=== PATIENT | male | born 1970 | race Hispanic/Latino ===

== ENCOUNTER 2018-11-13 00:28 | Inpatient (IN) | payer SELFPAY ==
[2018-11-13] MEDS ORDERED: Adacel (T-DAP) 0.5 ML SYRINGE ONE (00:30)
[2018-11-13] MEDS ORDERED: CEFAZOLIN 2 GM/50 ML BAG ONE (00:30)
[2018-11-13] MEDS ORDERED: Ketorolac Tromethamine 30 MG/ML VIAL ONE (00:32)
[2018-11-13] MEDS ORDERED: Fentanyl 100 MCG/2 ML VIAL ONE (00:33)
[2018-11-13 00:47] LABS: #Basophils 0.1 thou/uL (0.0-0.2); #Eosinphils 0.1 thou/uL (0.0-0.7); #Lymphocytes 3.6 thou/uL (1.20-3.40); #Monocytes 0.5 thou/uL (0.11-0.59); #Neutrophils 5.1 thou/uL (1.40-6.50); %Basophils 1.2 % (0.0-1.0); %Eosinophils 0.8 % (0.0-10.0); %Lymphocytes 38.4 % (21.0-51.0); %Monocytes 5.3 % (0.0-10.0); %Neutrophils 54.4 % (42.0-75.0); Mean Corpuscular HGB CONC 35.9 g/dL (32.0-36.0); Mean Corpuscular Hemoglobin 32.1 pg (27.0-31.0); Mean Corpuscular Volume 89.4 fL (78.0-98.0); Platelet Count 286 thou/uL (130-400); RBC Distribution Width 12.6 % (11.5-14.5); White Blood Cell (WBC) Count 9.3 thou/uL (4.8-10.8)
[2018-11-13 00:50] LABS: INR-International Normal Ratio 0.9; Prothrombin Time 12.7 SEC (12.0-14.7)
[2018-11-13] MEDS ORDERED: Dextrose 5% in Water 1,000 ML IV PRN (00:54)
[2018-11-13] MEDS ORDERED: Dextrose 50% Abboject 50 ML SYRINGE SLOW IVP PRN (00:54)
[2018-11-13 00:57] LABS: ALT (SGPT) 85 U/L (8-55); AST (SGOT) 58 U/L (5-34); Albumin 4.5 g/dL (3.5-5.0); Alkaline Phosphatase 76 U/L (40-150); Anion Gap 20 mmol/L (10-20); BUN (Urea Nitrogen) 10 mg/dL (8.9-20.6); Bilirubin, Total 0.7 mg/dL (0.2-1.2); Calc. Creatinine Clearance 0 mL/min (70-130); Calcium 9.1 mg/dL (7.8-10.44); Carbon Dioxide 20 mmol/L (22-29); Chloride 102 mmol/L (98-107); Estimated GFR-MDRD 53; Globulin 4.1 g/dL (2.4-3.5); Glucose 123 mg/dL (70-105); Potassium 3.2 mmol/L (3.5-5.1); Protein, Total 8.6 g/dL (6.0-8.3); Sodium 139 mmol/L (136-145)
[2018-11-13] MEDS ORDERED: Rib Fracture Protocol PO SCH (01:00)
[2018-11-13 01:07] LABS: Acetaminophen Less than 6.0 mcg/mL (10.0-30.0); Alcohol 118 mg/dL (Less than 10); Salicylate Less than 8.0 mg/dL (15.0-30.0)
[2018-11-13] MEDS ORDERED: hydrALAZINE 20 MG/ML VIAL ONE (01:30)
[2018-11-13] MEDS ORDERED: Sodium Chloride 0.9% 1,000 ML IV SCH (01:45)
[2018-11-13] MEDS ORDERED: traMADol HCl 50 MG TAB ONE (02:12)
[2018-11-13] MEDS: Cyclobenzaprine 10 MG TAB PO PRN (03:13)
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
[2018-11-13 03:38] VITALS: BMI 28.5
[2018-11-13] MEDS: Acetaminophen 500 MG TAB PO SCH ×4 (05:21→23:30)
[2018-11-13] MEDS: Ibuprofen 800 MG TAB PO SCH ×4 (05:21→23:30)
[2018-11-13] MEDS: traMADol HCl 50 MG TAB PO SCH ×4 (05:21→23:29)
[2018-11-13] MEDS ORDERED: CEFAZOLIN 2 GM in Sodium Chloride 0.9% 100 ML IVPB SCH (06:00)
[2018-11-13] MEDS: CEFAZOLIN 2 GM/50 ML-DEXTROSE 2 GM in Premix Bag 1 BAG IVPB SCH ×3 (07:57→23:29)
[2018-11-13] MEDS: Gabapentin 300 MG CAP PO SCH ×3 (07:58→20:03)
[2018-11-13] MEDS: Enoxaparin Sodium 40 MG/0.4 ML SYRINGE SC SCH (07:58)
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
--- NOTE | 2018-11-13 11:52 | RAD ---
LEFT SHOULDER 2 VIEWS: Date: 11/13/18 HISTORY: Fracture. COMPARISON: CT same day. FINDINGS: There is a comminuted fracture of the scapula with radiopaque debris. Scapular fracture is at the acr omion. The coracoid process and the body of the scapula is intact. There is a radiopaque object humeral head, although is not well seen on the radiograph. IMPRESSION: Comminuted fracture of the acromion process of the scapula with subcutaneous gas and radiopaque debri s. The body of the scapula is intact. POS: [facility]
[2018-11-13] MEDS ORDERED: Amlodipine 10 MG TAB PO SCH (12:15)
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
[2018-11-13] MEDS ORDERED: Iopamidol 370 76% 100 ML VIAL ONE (17:11)
[2018-11-14] MEDS: traMADol HCl 50 MG TAB PO SCH (05:14)
[2018-11-14] MEDS: Acetaminophen 500 MG TAB PO SCH (05:15)
[2018-11-14] MEDS: Ibuprofen 800 MG TAB PO SCH (05:17)
[2018-11-14 06:52] LABS: #Basophils 0.1 thou/uL (0.0-0.2); #Eosinphils 0.1 thou/uL (0.0-0.7); #Lymphocytes 1.4 thou/uL (1.20-3.40); #Monocytes 0.4 thou/uL (0.11-0.59); #Neutrophils 2.9 thou/uL (1.40-6.50); %Basophils 1.1 % (0.0-1.0); %Lymphocytes 27.7 % (21.0-51.0); %Monocytes 8.7 % (0.0-10.0); %Neutrophils 59.5 % (42.0-75.0); Hemoglobin 14.8 g/dL (14.0-18.0); Mean Corpuscular HGB CONC 36.6 g/dL (32.0-36.0); Mean Corpuscular Hemoglobin 32.8 pg (27.0-31.0); Mean Corpuscular Volume 89.6 fL (78.0-98.0); Mean Platelet Volume 7.1 fL (7.4-10.4); Platelet Count 206 thou/uL (130-400); RBC Distribution Width 12.3 % (11.5-14.5); White Blood Cell (WBC) Count 4.9 thou/uL (4.8-10.8)
[2018-11-14 07:05] LABS: Anion Gap 13 mmol/L (10-20); BUN (Urea Nitrogen) 9 mg/dL (8.9-20.6); Calc. Creatinine Clearance 84 mL/min (70-130); Calcium 8.9 mg/dL (7.8-10.44); Carbon Dioxide 25 mmol/L (22-29); Chloride 100 mmol/L (98-107); Estimated GFR-MDRD 68; Glucose 110 mg/dL (70-105); Potassium 3.5 mmol/L (3.5-5.1); Sodium 134 mmol/L (136-145)
[2018-11-14 08:14] VITALS: TEMP 98.1
[2018-11-14] MEDS ORDERED: Amlodipine 10 MG TAB PO SCH (09:00)
[2018-11-14] MEDS: CEFAZOLIN 2 GM/50 ML-DEXTROSE 2 GM in Premix Bag 1 BAG IVPB SCH (10:05)
[2018-11-14] MEDS: Enoxaparin Sodium 40 MG/0.4 ML SYRINGE SC SCH (10:06)
[2018-11-14] MEDS: Gabapentin 300 MG CAP PO SCH (10:06)
[2018-11-14] MEDS: Cyclobenzaprine 10 MG TAB PO PRN (10:08)
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
[2018-11-14 10:38] VITALS: BP 169/106
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
== END 2018-11-14 12:25 | disposition home or self-care (01) | DRG 563 ==
LOC: ERS 00:28 → SURG A 02:45
PROVIDERS: ADMIT Surgery; ATTEND Surgery
DX: S42.102 Fracture of unspecified part of scapula, left shoulder (principal); S27.321A Contusion of lung, unilateral, initial encounter; W34.00XA Accidental discharge from unspecified firearms or gun, initial encounter
CPT/HCPCS: 36415; 70498; 71045; 71046; 71260; 80048; 80053; 80307; 82150; 85025; 85610; 85730; 86850; 86900; 86901; 90471; 90715; 93005; 96365; 96375; G0390; J0360; J1650; J1885; J3010; J7620